=== PATIENT | female | born 1935 | race Caucasian/White ===

== ENCOUNTER → 2018-07-21 | Outpatient (CLI) | payer MEDICARE, BC | LOC: GMAH 17:32 | PROVIDERS: ATTEND Family Medicine | DX: N39.0 Urinary tract infection, site not specified (principal) ==

== ENCOUNTER → 2018-07-29 | Outpatient (CLI) | payer MEDICARE, BC ==
--- NOTE | 2018-07-29 14:55 | MRI ---
EXAM DESCRIPTION: Lumbar Spine w/o Contrast CLINICAL HISTORY: RADICULOPATHY COMPARISON: None Available. TECHNIQUE: MRI of the lumbar spine is performed according to our usual protocol with axial and sagittal multi sequence imaging. FINDINGS: Sagittal T2 images reveal decreased signal intensity consistent with desiccation of the intervertebral discs at all lumbar levels. Posterior annular bulges are most prominent at L1-2 through L5-S1. No prevertebral mass or aneurysm. Lower cord and conus appear normal. Tip of the conus is behind L1-L2. Grade 1 anterolisthesis of L5 on S1 is seen which measures 7 mm. Tarlov cysts are prominent and the sacrum. Sacral deformity suggests old healed fracture. Sagittal T1 images reveal benign marrow signal characteristics. Normal T1 signal intensity and appearance of the lower cord and conus. Sagittal STIR images are negative for marrow edema within the vertebral bodies or posterior elements. No paraspinous fluid collection. Perineural cysts are seen at T12-L1 and L2-3 levels. Axial T1 and T2-weighted images were obtained to evaluate the disc levels. T12-L1: No posterior annular bulge or herniation. No spinal stenosis or neural foraminal narrowing. Facets appear normal. Normal appearance of the lower cord and conus. Left T12-L1 perineural cyst measures 7 mm. L1-2: Moderate diffuse posterior annular bulge with right paracentral accentuation measuring 2 mm in AP dimension. No spinal stenosis or neural foraminal narrowing. Facets appear moderately hypertrophied. L2-3: Mild diffuse posterior annular bulge without focal herniation. No spinal stenosis. There is moderate left neural foraminal narrowing. Facets appear normal. Bilateral L2-3 perineural cysts are present measuring 8 mm on the left and 7 mm on the right. L3-4: Mild diffuse posterior annular bulge with left lateral accentuation. No spinal stenosis or significant neural foraminal narrowing. Moderately severe facet hypertrophy is seen bilaterally with left more than right subarticular recess narrowing. L4-5: Moderate diffuse posterior annular bulge without focal herniation. No spinal stenosis. There is mild left neural foraminal narrowing. Marked facet hypertrophic spurring is seen with thickened ligamentum flavum causing moderately severe right more than left subarticular recess narrowing affecting the descending L5 nerve roots. L5-S1: Mild diffuse posterior annular bulge plus uncovering of the posterior disc by anterolisthesis. No spinal stenosis. There is [id number] bilateral neural foraminal narrowing. Facets appear to be at a degenerated with marked spurring and ligamentum flavum thickening narrowing subarticular recesses without nerve root displacement. Upper sacrum appears intact. 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 No retroperitoneal mass or aneurysm. Scarring and parenchymal loss of the left kidney is noted. IMPRESSION: Multilevel posterior annular bulges without high-grade spinal stenosis. Grade 1 anterolisthesis of L5 on S1. Electronically signed by: Geoff Ray MD 07/29/2018 2:54 PM CDT
== END ==
LOC: MRI 10:00
PROVIDERS: ATTEND Family Medicine
DX: M51.16 Intervertebral disc disorders with radiculopathy, lumbar region (principal); M43.17 Spondylolisthesis, lumbosacral region

== ENCOUNTER → 2019-01-22 | Outpatient (CLI) | payer MEDICARE, BC ==
[~2019-01-22] MED LIST: ACETAMINOPHEN 325 MG TAB PO ONE; SODIUM CHLORIDE 0.9% 500ML 500 ML IVPB ONE; diphenhydrAMINE HCL 50 MG/ML VIAL IV ONE
[2019-01-22 19:46] VITALS: BP 121/59; TEMP 98.2; O2SAT 93
== END ==
LOC: EDSTATUS 08:00 → INFRM 09:39
PROVIDERS: ATTEND Family Medicine
DX: D64.9 Anemia, unspecified (principal)
CPT/HCPCS: 36415; 86850; 86900; 86901; 86922; G0463; J1200; J7040; P9016

== ENCOUNTER 2019-07-09 14:51 | Observation (INO) | payer MEDICARE, BC ==
--- NOTE | 2019-07-09 14:53 | HP ---
SUPERVISING PHYSICIAN: Rafy Carpenter M.D. CHIEF COMPLAINT: Symptomatic anemia. HISTORY OF PRESENT ILLNESS: Ms. Reynolds is a patient of Dr. Crandall's. He was seeing her today in followup in regards to her pain management. Laboratory studies showed that her hemoglobin was at 6.5. She does have a history of anemia secondary to chronic illness and has had transfusions in the past. She denied any actual blood loss in the recent weeks. It was noted that she was weak and having some nausea, but she said that she usually is nauseated on a daily basis which is nothing new. Dr. Crandall requested the patient be placed in observation overnight so that she could be typed and screened, and transfused 2 units of packed red blood cells. Given her advanced age of 83 and she is significantly anemic with some associated symptoms and a high risk of fall, the patient is going to be placed in observation for initiation and completion of blood transfusion. The patient was placed in observation in stable condition. PAST MEDICAL HISTORY: 1. Hypertension. 2. Diabetes mellitus type 2 on oral therapy. 3. Depression. 4. Anemia secondary to chronic illness with previous requirement for transfusions. 5. Gastroesophageal reflux disease. 6. 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 7. Rheumatoid arthritis with chronic pain syndrome. PAST SURGICAL HISTORY: No surgeries listed. HOME MEDICATIONS: 1. Amlodipine 10 mg daily. 2. Citalopram 40 mg daily. 3. Lisinopril Hydrochlorothiazide 20-12.5 mg 1 daily. 4. Erick 10/325 every 6 hours p.r.n. 5. Phenergan 1 every 4 to 6 hours p.r.n. for nausea and vomiting. 6. Metformin 500 mg b.i.d. 7. Benadryl allergy. 8. [id number] iron therapy 65 mg 1 daily. ALLERGIES: NO KNOWN DRUG ALLERGIES. FAMILY HISTORY: Father at age 76 secondary to lung cancer, a long time cigarette smoker. Mother at age 35 due to lower esophageal/stomach cancer. She has 1 brother who has hypertension and depression. SOCIAL HISTORY: The patient is retired. She is . She lives in [place], [place]. She has no history of tobacco smoking and she does not drink alcohol. REVIEW OF SYSTEMS: CONSTITUTIONAL: Positive for general fatigue and malaise. No unintentional weight loss, chills or rigors. HEENT: Negative for any ear aches, sore throat, nasal congestion or headaches. RESPIRATORY: Positive for dyspnea but negative for any cough or wheezing. CARDIOVASCULAR: Negative for any syncopal episodes, tachycardia, chest pains, palpitations. GASTROINTESTINAL: Negative for constipation or diarrhea. Does have some chronic nausea for which she takes Phenergan. MUSCULOSKELETAL: Positive for chronic back pain and ankle pain. Negative for any general arthralgias or myalgias. INTEGUMENT: Negative for any jaundice, rashes or lesions. NEUROLOGIC: Negative for any headaches, ataxia, vision changes, syncopal episodes or seizure activity. HEMATOLOGIC: No reported transfusion reactions or unexplained bleeding or bruising. PHYSICAL EXAMINATION: VITAL SIGNS: Temperature 97.7, pulse 105, blood pressure 155/67, respirations 16, satting 925 on room air. Admission weight was 59.2 kg. GENERAL: The patient appeared to be resting comfortably in no acute obvious distress. She is frail in appearance. HEENT: Tympanic membrane are clear bilaterally. Oropharynx is pink and moist without any lesions. NECK: Supple, non-tender. Full range of motion. No jugular venous distention. CHEST: Lungs were clear to auscultation bilaterally without any rhonchi, wheezing or rales. CARDIOVASCULAR: Regular rate and rhythm without appreciable murmurs, gallops, or rubs. ABDOMEN: Soft, non-tender. Positive bowel sounds. EXTREMITIES: Without any edema. NEUROLOGIC: She was alert and oriented times three. LABORATORY: Hemoglobin 6.8 and 21.8 respectively with white count 6,100. RBC indices indicate a microcytic hypochromic presentation with platelet count 354,000. No differential shift was noted. Electrolytes were within normal limits. BUN 23, creatinine 1.07, magnesium 2.1. Liver functions are all within normal limits. Amylase and lipase were both normal. Glucose 103. RADIOLOGY: No radiographic studies. MICROBIOLOGY: No microbiology specimens. ASSESSMENT: 1. Symptomatic anemia secondary to anemia of chronic illness with a microcytic hypochromic presentation having previously been on some iron therapy as well as had required previous blood transfusions. 2. Hypertension. 3. Diabetes mellitus type 2 on oral therapy. 4. Depression. 5. Anemia secondary to chronic illness with previous requirement for transfusions. 6. Gastroesophageal reflux disease. 7. 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 8. Rheumatoid arthritis with chronic pain syndrome. PLAN: Ms. Fair Play is going to be placed in observation today so that we can transfuse 2 units of packed RBCs. She is advanced age at 83 and at risk for falls, and was slightly symptomatic and given her significant H&H, she certainly will benefit from observation while waiting for transfusion, and again in observation while transfused. Will hold off on DVT prophylaxis with Lovenox given her H&H. She will be on insulin sliding scale per protocol. She will be on an ADA 1800 calorie diet. Anticipate length of stay to be 1 to 2 days. Anticipate hopefully discharging tomorrow if she has no complications from transfusing the 2 units of packed RBCs. Until then will continue to monitor and treat as needed. [id number] [facility]
[2019-07-09] MEDS ORDERED: DEXTROSE 50% 25 GM/50 ML SYG IV PRN (15:52)
[2019-07-09] MEDS ORDERED: SODIUM CHLORIDE 0.9% (FLUSH) 10 ML SYG IV PRN (15:52)
[2019-07-09] MEDS ORDERED: GLUCAGON INJ 1 MG VIAL SUBCU PRN (15:52)
[2019-07-09] MEDS ORDERED: ONDANSETRON INJ 4 MG/2 ML VIAL IV PRN (15:52)
[2019-07-09] MEDS ORDERED: ALUM & MAG HYDROX-SIMETHICONE 30 ML UD PO PRN (15:52)
[2019-07-09] MEDS ORDERED: MAGNESIUM HYDROXIDE 30 ML UD PO PRN (15:52)
[2019-07-09] MEDS ORDERED: ACETAMINOPHEN 325 MG TAB PO PRN (15:52)
[2019-07-09] MEDS ORDERED: diphenhydrAMINE HCL 50 MG/ML VIAL IV ONE (15:57)
[2019-07-09] MEDS ORDERED: ACETAMINOPHEN 325 MG TAB PO ONE (15:57)
[2019-07-09] MEDS ORDERED: HYDROcodone 10MG/APAP 325MG 1 EA TAB PO ONE (15:57)
[2019-07-09] MEDS ORDERED: SODIUM CHLORIDE 0.9% 500ML 500 ML IVS SCH (16:00)
[2019-07-09] MEDS ORDERED: IV SET AND CAP CHANGE INJ INJ SCH (16:00)
[2019-07-09] MEDS: INSULIN LISPRO 100 UNITS/ML PEN SUBCU SCH ×2 (16:47→21:36)
[2019-07-09] MEDS ORDERED: PROMETHAZINE HCL 25 MG TAB PO PRN (19:42)
[2019-07-09] MEDS ORDERED: metFORMIN HCL 500 MG TAB ONE (21:34)
[2019-07-09] MEDS: NON-FORMULARY MEDICATION 1 EA MIS (Metformin Hcl [Fortamet] 500 MG) PO SCH (21:36)
[2019-07-09] MEDS: HYDROcodone 10MG/APAP 325MG 1 EA TAB PO PRN (21:36)
[2019-07-10] MEDS: HYDROcodone 10MG/APAP 325MG 1 EA TAB PO PRN ×2 (05:20→11:35)
[2019-07-10] MEDS: INSULIN LISPRO 100 UNITS/ML PEN SUBCU SCH (07:28)
[2019-07-10] MEDS ORDERED: hydroCHLOROthiazide 12.5 MG CAP PO SCH (09:00)
[2019-07-10] MEDS ORDERED: metFORMIN HCL 500 MG TAB PO SCH (09:00)
[2019-07-10] MEDS ORDERED: FERROUS SULFATE 325 MG TAB PO SCH (09:00)
[2019-07-10] MEDS ORDERED: CITALOPRAM HBR 20 MG TAB PO SCH (09:00)
[2019-07-10] MEDS ORDERED: amLODIPine BESYLATE 5 MG TAB PO SCH (09:00)
[2019-07-10] MEDS ORDERED: LISINOPRIL 10 MG TAB PO SCH (09:00)
[2019-07-10] MEDS: NON-FORMULARY MEDICATION 1 EA MIS (Metformin Hcl [Fortamet] 500 MG) PO SCH (10:55)
[2019-07-10 11:55] VITALS: BP 102/68; TEMP 98.1; O2SAT 95
--- NOTE | 2019-07-28 15:06 | DS ---
SUPERVISING PHYSICIAN: Karsten Gonzalez MD ADMISSION DIAGNOSES: 1. Symptomatic anemia secondary to anemia of chronic illness with a microcytic hypochromic presentation having previously been on some iron therapy as well as had required previous blood transfusions. 2. Hypertension. 3. Diabetes mellitus type 2 on oral therapy. 4. Depression. 5. Anemia secondary to chronic illness with previous requirement for transfusions. 6. Gastroesophageal reflux disease. 7. 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 8. Rheumatoid arthritis with chronic pain syndrome. DISCHARGE DIAGNOSES: 1. Symptomatic anemia secondary to anemia of chronic illness with a microcytic hypochromic presentation receiving 2 units of packed red blood cells without any complications. 2. Hypertension. 3. Diabetes mellitus type 2 on oral therapy. 4. Depression. 5. Anemia secondary to chronic illness with previous requirement for transfusions. 6. Gastroesophageal reflux disease. 7. 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 8. Rheumatoid arthritis with chronic pain syndrome. REASON FOR HOSPITALIZATION: : Ms. Reynolds is a patient of Dr. Crandall's. He was seeing her today in followup in regards to her pain management. Laboratory studies showed that her hemoglobin was at 6.5. She does have a history of anemia secondary to chronic illness and has had transfusions in the past. She denied any actual blood loss in the recent weeks. It was noted that she was weak and having some nausea, but she said that she usually is nauseated on a daily basis which is nothing new. Dr. Crandall requested the patient be placed in observation overnight so that she could be typed and screened, and transfused 2 units of packed red blood cells. Given her advanced age of 83 and she is significantly anemic with some associated symptoms and a high risk of fall, the patient is going to be placed in observation for initiation and completion of blood transfusion. The patient was placed in observation in stable condition. LABORATORY: CBC prior to infusion showed a hemoglobin of 6.8 and hematocrit 71.8 with a microcytic hypochromic presentation of RBCs, platelet count of 354,000 after transfusion of 2 units of packed red blood cells. Hemoglobin and hematocrit showed to be 9.5 and 29.8 respectively. Chemistries on admission showed normal electrolytes as well as the discharge, BUN 26, creatinine 1.29, blood sugars between 95 and 160. Liver functions were all within normal limits. Amylase and lipase were within normal limits. No radiology and no microscopic specimens. HOSPITAL COURSE: Ms. Reynolds was admitted for symptomatic anemia on 07/09, transfused 2 units of packed red blood cells without any complications. Hemoglobin and hematocrit were showing to be improve prior to discharge and stable and it was felt that she could continue with outpatient management. PLAN: Ms. Reynolds was discharged to followup with Dr. Crandall as scheduled. She is to resume all her medications as prior to hospitalization and return should she have any concerning symptoms or go to the Emergency Department. Diet was diabetic diet as tolerated. Activities as per physical therapy, increase as tolerated. DISPOSITION: Stable and improved. CONDITION ON DISCHARGE: The patient was discharged home to the care of family members. #[id number] [facility]
== END 2019-07-10 11:45 | disposition home or self-care (01) ==
LOC: MS 14:51 → INTOOBSV 14:51
PROVIDERS: ADMIT Nurse Practitioner Family; ATTEND Nurse Practitioner Family
DX: D64.9 Anemia, unspecified (principal); D63.8 Anemia in other chronic diseases classified elsewhere; I10 Essential (primary) hypertension; E11.9 Type 2 diabetes mellitus without complications; F32.9 Major depressive disorder, single episode, unspecified; K21.9 Gastro-esophageal reflux disease without esophagitis; G89.4 Chronic pain syndrome; M54.16 Radiculopathy, lumbar region; M06.9 Rheumatoid arthritis, unspecified; Z79.84 Long term (current) use of oral hypoglycemic drugs; Z79.891 Long term (current) use of opiate analgesic; Z79.899 Other long term (current) drug therapy; Z80.1 Family history of malignant neoplasm of trachea, bronchus and lung; Z80.0 Family history of malignant neoplasm of digestive organs; Z82.49 Family history of ischemic heart disease and other diseases of the circulatory system; Z81.8 Family history of other mental and behavioral disorders
CPT/HCPCS: J1200; J7040; 80053 ×2; 82948 ×3; 36415 ×4; 82150; 85025 ×2; 83690; 83735; 36416 ×2; 86922; 86900; 86901; 86850; 36430 ×2; 94760 ×2; G0378

== ENCOUNTER → 2020-01-21 | Outpatient (CLI) | payer MEDICARE, BC | LOC: GMA MATASK 14:11 | PROVIDERS: ATTEND Family Medicine | DX: I10 Essential (primary) hypertension (principal); E11.9 Type 2 diabetes mellitus without complications ==

== ENCOUNTER → 2020-06-21 | Outpatient (CLI) | payer MEDICARE, BC | LOC: GMA MATASK 10:21 | PROVIDERS: ATTEND Family Medicine | DX: M06.9 Rheumatoid arthritis, unspecified (principal); E11.40 Type 2 diabetes mellitus with diabetic neuropathy, unspecified; I10 Essential (primary) hypertension; D63.8 Anemia in other chronic diseases classified elsewhere; R30.0 Dysuria ==

== ENCOUNTER → 2020-07-20 | Outpatient (CLI) | payer MEDICARE, BC | END | disposition home or self-care (01) | LOC: YCHH 13:10 | PROVIDERS: ATTEND Family Medicine | DX: R30.0 Dysuria (principal); N39.0 Urinary tract infection, site not specified ==

== ENCOUNTER → 2020-07-25 | Outpatient (CLI) | payer MEDICARE, BC | LOC: YCHH 08:52 | PROVIDERS: ATTEND Family Medicine | DX: E11.40 Type 2 diabetes mellitus with diabetic neuropathy, unspecified (principal); D63.8 Anemia in other chronic diseases classified elsewhere; I10 Essential (primary) hypertension ==

== ENCOUNTER → 2020-11-08 | Outpatient (CLI) | payer MEDICARE, BC | LOC: YCHH 10:28 | PROVIDERS: ATTEND Family Medicine | DX: M06.9 Rheumatoid arthritis, unspecified (principal); E11.40 Type 2 diabetes mellitus with diabetic neuropathy, unspecified; I10 Essential (primary) hypertension; D63.8 Anemia in other chronic diseases classified elsewhere; N39.0 Urinary tract infection, site not specified; D50.9 Iron deficiency anemia, unspecified ==